=== PATIENT | female | born 1970 ===

== ENCOUNTER 2024-06-30 14:30 | Outpatient (AMB) | payer OTHER, SELFPAY ==
[2024-06-30 14:37] VITALS: BP 128/68; PULSE 73; O2SAT 96; BMI 37.9
--- NOTE | 2024-06-30 14:37 | MHC.OFFVIS ---
Vital Signs 06/30/24 14:37 Height 5 ft 4 in Weight 221 lb BMI 37.9 BP 128/68 Blood Pressure Location Rt brachial Position Sitting Pulse 73 Pulse Source Pulse Oximeter Pulse Oximetry (%) 96 Oxygen Delivery Method Room Air Intake Visit Reasons: ILD Drop Press Hand Required: No Nurse Manager: Nurse Manager offered & declined Accompanied by: Self / Same As Patient Allergies hydromorphone [From Dilaudid] Allergy (Verified 06/30/24 14:48) rash dilantin Allergy (Uncoded 06/30/24 14:48) rash Medication List - Last Reconciled 06/30/24 by Paola Latham LPN albuterol sulfate 90 mcg/actuation 2 puffs inhalation QID PRN albuterol sulfate 0.63 mg inhalation TID PRN amlodipine 5 mg PO DAILY multivit with min-folic acid 42 mcg (Centrum MultiGummies Women) tabs PO HPI HPI ILD: Details: Kassidy is a pleasant 53-year-old female, never smoker with underlying HTN. She was referred by PCP for pulmonary evaluation. She was previously under the care of [facility] pulmonary for ILD of unknown etiology and was scheduled for diagnostic bronchoscopy however did not follow through with this and presents today to reestablish care. She reports prior diagnosis of interstitial lung disease with symptoms starting in 2017. At that time patient reported significant dyspnea and cough which resolved with short courses of prednisone. It is unclear which type of interstitial lung disease she has, possibly related to underlying autoimmune conditions, AAMIR positive previously however she reported most recent blood work did not reveal this. 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 She continues with a wet cough, dyspnea on exertion and persistent postnasal drip. She denies wheezing or chest tightness. She reports symptoms are triggered with upper respiratory infections as well as cold air in the winter. She had a prior PFT in 2019, report not available today, but reports she could complete due to persistent coughing. She currently has a prescription for albuterol which she uses multiple times a week and also has nebulized albuterol however uses infrequently due to tachycardia. She denies prior history of asthma or recurrent respiratory infections. She denies secondhand smoke exposure. She denies any occupational exposures. She endorses seasonal allergies. No pets at home. Denies recent allergy testing. She does have a history of acid reflux however denies symptoms currently. [facility] Social History (Updated 06/30/24 @ 14:41 by Paola Latham LPN) Patient Tobacco Use Status: Never used Tobacco Review of Systems ENT Reports Normal hearing present Neuro Reports Normal hearing present Physical Exam Vital Signs: Last Vital Signs Pulse 73 06/30/24 14:37 BP 128/68 06/30/24 14:37 Pulse Ox 96 06/30/24 14:37 Oxygen Delivery Method Room Air 06/30/24 14:37 BMI result Body Mass Index 37.9 Const General: cooperative, healthy appearing, comfortable, no acute distress, well developed and alert Orientation/consciousness: patient oriented x3 Limitations: no limitations HEENT Head: Yes normal to inspection, Yes normocephalic and Yes atraumatic Ears: hearing grossly normal bilaterally and external ears normal Eyes General: appearance normal, both eyes and all related structures Eyelids: Yes eyelids normal Sclerae: sclerae normal EOM: EOMs intact bilaterally Neck Neck: Yes normal visual inspection and Yes no lymphadenopathy Lymphatic: no lymphadenopathy noted Chest Chest palpation & inspection: normal inspection of the chest Resp Other: Persistent throat clearing throughout visit Effort & Inspection: normal respiratory effort, able to speak in complete sentences, no audible wheezes, no cough, no stridor, not tachypneic, no tripod positioning and no use of accessory muscles Auscultation: clear to auscultation bilaterally and crackles (Faint bibasilar inspiratory crackles) Cardio Jugular venous distension: no JVD Rate: regular rate Rhythm: regular rhythm Skin Other: warm, dry General skin exam: no rashes or lesions noted Neuro General: patient oriented x3 Cranial nerves: Yes Normal hearing present Cognition (Neuro): normal cognition Gait exam (Neuro): Normal gait present Extrem General: Yes normal to inspection, Yes capillary refill normal, Yes no clubbing, cyanosis or edema and Yes no pedal edema Psych Appearance: grossly normal and well kempt Speech and movement: Normal speech and movement present and Clear speech present Affect: normal affect Attitude: cooperative Thought process: Normal thought process present Thought content: Normal thought content present Insight: Good insight present (Psych) Judgement: Good judgement present (Psych) Results Reviewed Results Reviewed: RESULT: CT Chest W/O Contrast CT Chest W/O Contrast INDICATION: Reason: Other:; ILD; Clinical Question(s): Other: TECHNIQUE: High resolution chest CT protocol. Noncontrast multidetector CT through the chest with contiguous 3 mm sections, 1 mm inspiratory high resolution images spaced through the chest supine, and expiratory high-resolution images spaced through the chest supine. Coronal and sagittal reformatted images were obtained and reviewed. Weight-based protocol was performed using automatic exposure control. CTDIvol Body: 11.00 mGy, DLP Body: 575 mGy*cm. COMPARISON: March 24, 2020. FINDINGS: Security Program Manager view findings, lines and tubes: None. Trachea and airways: Patent without evidence of tracheal or endobronchial lesion. Lungs and pleura: There is similar diffuse subpleural fibrotic changes with interstitial reticulation and subpleural microcystic change, with basilar predominance, where the lower lobes demonstrate more confluent groundglass and honeycombing changes,. The changes at the bases are very similar to the prior study from 2020, with resolution of the previously seen pleural effusion. The subpleural interstitial reticulation and soft tissue in the mid and upper lobes is slightly progressed. No pneumothorax or evidence of active infection. Mediastinum and jethro: No mass or hematoma. No mediastinal or hilar lymphadenopathy. No esophageal abnormality. Heart: Mild cardiomegaly. Trace pericardial fluid without radhika effusion. No coronary arterial calcifications. Aorta: No aortic aneurysm. Pulmonary arteries: Mildly enlarged pulmonary arteries measuring up to 3.4 cm. Chest wall soft tissues: Mildly prominent axillary lymph nodes are similar to prior. Diaphragm: Intact. Upper abdomen: Partially imaged low-attenuation 2.0 x 1.8 cm right adrenal nodule is compatible with a benign lipid or adrenal adenoma (2:79). No dedicated imaging follow-up is required. Biochemical evaluation can be considered, as indicated clinically. This was likely present previously, though increased from at most 1.4 cm in 202. Small accessory spleen. Bones: No acute abnormality. IMPRESSION: 1. 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 2. Mild enlarged pulmonary arteries, which may indicate pulmonary arterial hypertension. WSN: [id number] Ordering Physician: Alejandro Varma Reason For Exam ILD;Other: Signature Line Dictated By: Landon Suarez MD Dictated Date/Time: 06/23/24 2:11 pm Reviewed By: Landon Suarez MD Signed By: Landon Suarez MD Signed Date/Time: 06/23/24 2:11 pm Transcribed By: MANNIE Assessment & Plan Assessment & Plan (1) Interstitial lung disease: Code(s): J84.9 - Interstitial pulmonary disease, unspecified Category: Medical (2) Chronic cough: Code(s): R05.3 - Chronic cough Category: Medical (3) Environmental allergies: Code(s): Z91.09 - Other allergy status, other than to drugs and biological substances Category: Medical Plan Kassidy presents for pulmonary evaluation for known history of interstitial lung disease. Etiology is unclear, however may be related to underlying autoimmune conditions. Will send for labs to assess. Recent chest CT revealed some progression of fibrosing, will attempt to obtain images of recent CT as well as prior CT from 2020. There was also note of mildly enlarged pulmonary arteries measuring up to 3.4 cm, will send for echo. Will also send for updated PFT and RAST to assess for an allergic component as her symptoms seem to worsen during the spring and fall. Will empirically start patient on Breo as she has been using albuterol frequently and benefiting from. Will also trial of ipratropium nasal spray for persistent postnasal drip. All questions were answered and patient is in agreement of plan. Will follow-up to review results or sooner if needed. Orders: Orders Immunoglobulin E 06/30/24 Z91.09 - Other allergy status, other than to drugs and biological substances Resp Allergy Profile Region I 06/30/24 Z91.09 - Other allergy status, other than to drugs and biological substances Complete Blood Count Auto Diff 06/30/24 Z91.09 - Other allergy status, other than to drugs and biological substances PFT pulmonary function test 06/30/24 R05.3 - Chronic cough AAMIR Reflex Titer and Pattern Today J84.9 - Interstitial pulmonary disease, unspecified Anti DNA DS Antibody Today J84.9 - Interstitial pulmonary disease, unspecified Cyclic Citrullinated Peptide Today J84.9 - Interstitial pulmonary disease, unspecified Scleroderma 70 Antibody Today J84.9 - Interstitial pulmonary disease, unspecified Hypersensitive Pneumonitis Prf Today J84.9 - Interstitial pulmonary disease, unspecified Rheumatoid Factor Today J84.9 - Interstitial pulmonary disease, unspecified CA echo transthoracic complete Today J84.9 - Interstitial pulmonary disease, unspecified, R06.00 - Dyspnea, unspecified Medications: New fluticasone furoate-vilanterol 100-25 mcg/dose (Breo Ellipta) 1 inh inhalation DAILY 60 ea 3RF ipratropium bromide administer into each nostril 2 sprays intranasal BID 30 mL 3RF Coding Level of Care Code New Pt Level 4 (69614) Diagnoses Interstitial lung disease J84.9 Chronic cough R05.3 Environmental allergies Z91.09
== END 2024-06-30 15:22 | disposition home or self-care (01) ==
LOC: HO.HPSW 14:30
PROVIDERS: Visit Provider Nurse Practitioner Family
DX: J84.9 Interstitial pulmonary disease, unspecified (principal); R05.3 Chronic cough; Z91.09 Other allergy status, other than to drugs and biological substances
CPT/HCPCS: 99204

== ENCOUNTER → 2024-08-10 14:02 | Outpatient (REF) | payer OTHER, SELFPAY ==
--- NOTE | 2024-08-10 14:04 | CA_ITS ---
Transthoracic Echocardiogram Patient (Last, First, Middle): Kassidy Cooper, Gender: Female Date of : 1970 Age: 54 Procedure Date: 08/10/2024 Procedure Type: Transthoracic Echocardiogram Location: OP Height: 162. cm Weight: 95.26 kg BSA: 1.99 m2 Heart Rate: 69 bpm BP: 158 / 75 mmHg Rayon Winder: [place] Referring MD: Linda Collins SCHOOL LEADER Symptoms: J84.9 - Interstitial pulmonary disease, unspecified Study Quality: Fair ECG Rhythm: Sinus Conclusions: - The left ventricular systolic function is normal. The calculated ejection fraction is 58% by biplane method. - There is mildly increased left ventricular wall thickness. - No obvious valvular pathology seen on this study. Findings Left Ventricle Normal left ventricular cavity size. There is mildly increased left ventricular wall thickness. The left ventricular systolic function is normal. The calculated ejection fraction is 58% by biplane method. There is no evidence of regional wall motion abnormalities. Evidence suggests grade I (mild) diastolic dysfunction. Right Ventricle Normal right ventricular cavity size and systolic function. Atria Both atria are normal in size. Aortic Valve There is a normal trileaflet aortic valve. There is no aortic valve stenosis. There is no aortic valve regurgitation. Mitral Valve The mitral valve appears normal. There is no mitral valve regurgitation. There is no mitral valve stenosis. Pulmonic Valve The pulmonic valve is likely normal. Tricuspid Valve There is trace tricuspid valve regurgitation. There is no evidence of pulmonary hypertension. Great Vessels The asc aorta and aortic arch are normal in size. Venous The inferior vena cava is normal in size and collapses greater than 50% with inspiration. Pericardium/Pleural There is no evidence of pericardial effusion. Prior Study Comparison No prior study available for comparison. Recommendations, Care & Conclusions No obvious valvular pathology seen on this study. Measurements 2D Linear Measurements IVSd: 1.11 0.6-0.9/0.6-1.0 cm LVIDd: 4.52 3.9-5.3/4.2-5.9 cm LVIDd Index: 2.27 2.4-3.2/2.2-3.1 cm/m2 LVIDs: 2.48 2.0-3.6 cm LVPWd: 1.29 0.7-1.1 cm LA Diam: 3.20 2.7-3.8/3.0-4.0 cm LAIDs Index: 1.61 1.5-2.3 cm/m2 LV Mass: 248.59 67-162/88-224 g LV Mass Index: 124.92 43-95/49-115 g/m2 LVOT Diam: 1.90 3.0+(-)1.3 cm 2D Systolic Function EF 4C: 57.30 >55% EF 2C: 57.00 >55% EF BiP: 57.50 >55% Mitral Valve MV Pk E: 0.59 MV PK A: 0.88 MV Decel Time: 297.00 E/A: 0.70 E'Lateral: 5.55 E'Medial: 4.46 E/E' Med: 13.30 E/E' Lat: 10.60 PHT: 87.00 MVA PHT: 2.53 Decel [place]: 1.99 Aortic Valve AoV Pk Jd: 1.72 AoV Mn Jd: 1.17 AoV VTI: 0.34 AoV Pk Grad: 12.00 Aov Mn Grad: 6.00 KITTY Cont.VTI: 2.09 LVOT LVOT Pk Jd: 1.25 LVOT Mn Jd: 0.88 LVOT VTI: 0.25 LVOT Pk Grad: 6.00 LVOT Mn Grad: 4.00 LVOT Diam: 1.90 LVOT Area: 2.84 Diastolic Function MV Pk E: 0.59 MV Pk A: 0.88 E/A: 0.70 E'Medial: 4.46 E/E' Med: 13.30 E' Laterial: 5.55 E/E' Lat: 10.60 Right Ventricle TAPSE (mm): 23.30 TVS' Jd: 15.80 Tricuspid Valve RA Press: 3.00 Great Vessels Aorta Sinus of Valsalva: 3.00 2.0-3.5 cm Ao Asc: 3.50 2.1-3.4 cm Ao Arch: 3.00 Pulmonary Valve PV Pk Jd: 0.95 Peak PV Grad: 4.00 Updated in Other Vendor System with Status of Final Booker Salguero MD electronically signed on 08/10/2024 3:39:39 PM with status of Final
== END ==
LOC: HO.CARD 14:02
PROVIDERS: Visit Provider Nurse Practitioner Family
DX: J84.9 Interstitial pulmonary disease, unspecified (principal); R06.00 Dyspnea, unspecified
CPT/HCPCS: 93306

== ENCOUNTER → 2024-08-10 14:04 | Outpatient (BNV) | payer OTHER, SELFPAY | PROVIDERS: Visit Provider Internal Medicine | DX: I51.89 Other ill-defined heart diseases (principal) | CPT/HCPCS: 93306 ==